=== PATIENT | male | born 1995 | race Caucasian/White ===

== ENCOUNTER 2019-11-04 00:58 | Inpatient (IN) | payer SELFPAY ==
[2019-11-04] VITALS (41 sets, daily range): BP systolic 72–146; BP diastolic 44–98; PULSE 64–107; RESP 7–97; TEMP 36.6–37.2; O2SAT 15–100; BMI 22.1
--- NOTE | ~2019-11-04 | CT_ITS ---
EXAMINATION: CT brain wo con DATE: 11/04/2019 06:02 INDICATION: Syncope TECHNIQUE: Computed tomography (CT) of the head was performed without intravenous contrast. The mA wa s adjusted according to patient size. Iterative reconstruction technique was employed. Exam dose: 60 5.33 mGy-cm total exam DLP. COMPARISON: 09/04/2019 CT brain FINDINGS: No intracranial mass lesion or hemorrhage or cerebrovascular accident. No midline shift or mass effect. Normal ventricular size. Normal oneill-white matter differentiation. No subdural or epidur al hematoma. No fracture or bone destruction of the cranial vault. Included paranasal sinuses and mastoid air cells are unremarkable. IMPRESSION: No significant abnormality Reviewed, dictated and finalized at [facility]. Reviewed, dictated and finalized at [facility]. OR SCRIPT EDITOR IMPRESSION: No significant abnormality
--- NOTE | ~2019-11-04 | CT_ITS ---
EXAMINATION: CTA chest PE abdomen pel DATE: 11/04/2019 02:25 INDICATION: Syncope. Hypotension. Chest pain. Abdominal pain, vomiting. Shaking. TECHNIQUE: Computed tomography angiography (CTA) of the chest was performed with 100 mL Omnipaque-350 intravenous contrast timed to evaluate the pulmonary arteries. Coronal maximum intensity projection 3D-reconstructions were created by the technologist. Automated exposure control and iterative reconst ruction technique were employed. Exam dose: 736.43 mGy-cm total exam DLP. COMPARISON: 04/26/2015 CT abdomen pelvis 09/04/2019 right RIBS with one view chest FINDINGS: There is diagnostic contrast enhancement of the pulmonary arteries and no evidence of pulmo nary embolism. No thoracic aortic aneurysm or dissection. Normal size and homogeneous attenuation of the thyroid gland. Normal heart size. No pericardial or pleural effusion. The lungs are clear. Included thoracic skeletal structures are unremarkable. The liver, gallbladder, bile ducts, spleen, pancreas, pancreatic duct, and adrenal glands and kidneys appear normal. Normal caliber of the abdominal aorta. No intraperitoneal or retroperitoneal or pelvi c mass lesion or adenopathy or ascites. Normal appendix. There is a moderately prominent amount of fecal material within the colon. No bowel obstruction or intraperitoneal free air. The urinary bladder is unremarkable. Minimal prostate gland calcification. There is a benign appearing lucency of the third lumbar vertebral body posteriorly on the left, measu ring approximately 9 x 14 mm, with sclerotic margin. The included abdominal and pelvic skeletal struc tures are otherwise unremarkable. IMPRESSION: No evidence of pulmonary embolism No other significant abnormality of the chest or abdomen Reviewed, dictated and finalized at [facility]. Reviewed, dictated and finalized at location [facility]. O ENGINEER
--- NOTE | 2019-11-04 01:15 | ECG_ITS ---
Measurements Intervals [place] Rate: 97 P: 82 [place]: 131 QRS: 66 QRSD: 105 T: 63 QT: 359 QTc: 457 Interpretive Statements SINUS RHYTHM POSSIBLE LEFT ATRIAL ENLARGEMENT INCOMPLETE RIGHT BUNDLE BRANCH BLOCK NONSPECIFIC ST & T-WAVE ABNORMALITY- ANTEROLAT/INF LEADS BASELINE ARTIFACT- I, III, AVR, AVL, AVF, V4-V6 BORDERLINE ECG Electronically Signed On 11-04-2019 8:13:39 CREDIT RISK ANALYST by Dean Story D.O.
--- NOTE | 2019-11-04 01:32 | ED.SYNCOPE ---
HPI - Syncope General Chief Complaint: Syncope Stated Complaint: syncopal Time Seen by Provider: 11/04/19 01:32 Source: patient, RN notes reviewed and other (ex-) Mode of arrival: wheelchair Limitations: no limitations History of Present Illness HPI narrative: A 24 y/o male presents to the ED after having a possible syncopal event earlier in the night. Per ex- states that the pt called him and told her that he thought he was going to pass out and was afraid to drive. She reports that when she got there around 0030 that the pt was slumped over the steering wheel with the door open but was conscious, and that since she has been with the pt that he hasn't had any LOC. The pt states that he was walking out of work to his car when he became hot, sweaty, and nauseas. He reports that he was in his car when he called his ex and then blacked out. He notes that he is still hot, sweaty, and nauseas. He denies any CP, cough, SOB, vomiting, diarrhea, ABD pain, or JACINTO. MD complaint: loss of consciousness Onset (ago): minute(s) (less than an hour) Prodromal symptoms: diaphoresis, nausea/vomiting (no vomiting) and other (hot) Witnessed: No Context: other (leaving work) Injuries sustained associated with event: none Current symptoms: nausea and other (hot and sweaty) Related Data Allergies Allergy/AdvReac Type Severity Reaction Status Date / Time COCONUT Allergy Unknown Unknown Uncoded 11/04/19 01:15 Review of Systems Review of Systems: Narrative: CONSTITUTIONAL: Reports feeling hot and sweat. CARDIOVASCULAR: Denies chest pain. RESPIRATORY: Denies cough or dyspnea. GASTROINTESTINAL: Denies abdominal pain, vomiting, or diarrhea. Reports nausea. NEUROLOGIC: Denies headache. Reports LOC. All systems reviewed & are unremarkable except as noted in HPI and below PMFSH Past Medical History Medical History (Updated 11/04/19 @ 05:55 by Yohana Terry MD) Asthma Bronchitis Surgical History Surgical History (Updated 09/05/19 @ 00:25 by Breanna Cook PA-C) Hx of tonsillectomy Social History Social History (Updated 11/04/19 @ 03:30 by Eitan Murphy) Smoking status: Current every day smoker Tobacco type: cigarettes and e-cigarettes Gender identity (if verbalized by the patient): Male Exam Narrative: Exam Narrative: GENERAL: Unwell appearing, diaphoretic, awake HEAD: Normocephalic, atraumatic. EYES: PERRLA and EOMI. ENT: Nares clear, no rhinorrhea or epistaxis. Mucous membranes dry. NECK: Supple. CHEST: Clear to auscultation. No respiratory distress. HEART: Regula] rate and rhythm. No murmur heard. Normal peripheral pulses. ABDOMEN: Soft, mildly tender in periumbilical area, nonrigid, nondistended, normal active bowel sounds. EXTREMITIES: Normal range of motion. No edema. SKIN: Cool, pale, diaphoretic NEURO: No focal deficits. Alert and oriented x3 Course Course Emergency Course: Patient presented for evaluation of syncope. At the time of initial assessment, ABCs are intact and vital signs are stable. I was then called to the patient's bedside, as his blood pressure had dropped, he became bradycardic, and this was seemingly consistent with a nearly vasovagal syncope. Patient had no prodromal symptoms, stated that he suddenly began to feel nauseated and then he had a change in his vital signs. Patient did not lose consciousness in the ED, but nearly did lose consciousness. Patient's ex- reported that he did syncopized earlier, but did not have any seizure activity. Patient without tongue biting or urinary incontinence. No history of seizures. Patient denies any history of anxiety or depression, states he does not currently feel anxious. Obtained laboratory testing all which is unremarkable. Patient is not anemic, no leukocytosis. No lactic acidosis. No UTI. No severe electrolyte derangement, patient does have hypokalemia, but we will replete this orally. CT imaging shows no evidence of PE or intra-abdominal pathology. Lindsey
--- NOTE | 2019-11-04 01:37 | PC.NURSE ---
Patient's visitor comes to this nurse and states patient states he is not feeling good. This nurse and EDP goes into room and patient is pale and patient's BP has dropped. VORB IV fluids are started on patient.
--- NOTE | 2019-11-04 01:39 | ECG_ITS ---
Measurements Intervals [place] Rate: 76 P: 91 [place]: 138 QRS: 80 QRSD: 108 T: 50 QT: 384 QTc: 432 Interpretive Statements SINUS RHYTHM POSSIBLE LEFT ATRIAL ENLARGEMENT INCOMPLETE RIGHT BUNDLE BRANCH BLOCK BORDERLINE ST-T WAVE ABNORMALITY- ANT/INF LEADS BASELINE ARTIFACT- I, II, III, AVR, AVL, AVF, V3 BORDERLINE ECG Electronically Signed On 11-04-2019 8:14:26 VEGETABLE GROWER by Dean Story D.O.
[2019-11-04 01:41] LABS: Basophils Absolute Auto 0.1 K/mm3 (0.0-0.1); Basophils Percent Auto 0.6 % (0.2-1.2); Eosinophils Absolute Auto 0.1 K/mm3 (0-0.3); Eosinophils Percent Auto 0.7 % (0-4.4); Hematocrit 43.3 % (42.0-52.0); Immature Granulocyte Absolute 0.03 K/mm3 (0.00-0.031); Immature Granulocyte Percent A 0.3 % (0-0.5); Lymphocytes Absolute Auto 2.13 K/mm3 (0.9-3.2); Lymphocytes Percent Auto 24.3 % (18.3-44.2); Mean Corpuscular HGB Conc 34.6 g/dl (32-36); Mean Corpuscular Hemoglobin 34.5 pg (26-34); Mean Corpuscular Volume 99.5 fl (80-100); Mean Platelet Volume 9.6 fl (7.4-10.4); Monocytes Absolute Auto 0.6 K/mm3 (0.1-0.6); Monocytes Percent Auto 7.3 % (2.6-8.5); Neutrophils Absolute Auto 5.9 K/mm3 (1.3-6.7); Neutrophils Percent Auto 66.8 % (45.5-73.1); Platelet Count Result 228 k/mm3 (150-375); Red Blood Count 4.35 M/mm3 (4.6-6.20); Red Cell Distribution Width 10.4 % (11.5-14.5); White Blood Count 8.8 K/mm3 (4.5-10.0)
[2019-11-04] MEDS: SODIUM CHLORIDE 0.9% IV 2,000 ML 999 ML (01:47)
[2019-11-04 01:54] LABS: Blood Urea Nitrogen 9 mg/dL (9-20); Calcium 9.4 mg/dL (8.4-10.2); Carbon Dioxide 30 mmol/L (22-30); Chloride 96 mmol/L (98-107); Estimated CRCL calculation 109 ml/min; Estimated Glomerular Filt Rate > 60; Glucose 108 mg/dL (75-110); Sodium 141 mmol/L (137-145)
--- NOTE | 2019-11-04 02:08 | PC.NURSE ---
Patient taken to CT.
[2019-11-04 02:27] LABS: Alanine Aminotransferase 15 U/L (4-50); Albumin Level 4.9 g/dL (3.5-5.1); Alkaline Phosphatase 66 U/L (38-126); Aspartate Amino Transferase 20 U/L (17-59); Bilirubin,Total 2.3 mg/dL (0.2-1.3)
[2019-11-04] MEDS: ONDANSETRON INJ 4 MG/2 ML VIAL IV PUSH ×2 (02:27→09:16)
[2019-11-04 02:28] LABS: Lipase 69 U/L (23-300)
[2019-11-04 02:34] LABS: INR 1.1; Prothrombin Time 13.5 Seconds (11.1-14.7)
[2019-11-04 02:35] LABS: Partial Thromboplastin Time 25.1 SECONDS (22.3-36.8)
[2019-11-04 02:42] LABS: NT Pro B Type Natriuretic Pept 23 PG/ML (5-100); Troponin I < 0.012 ng/mL (0.000-0.034)
--- NOTE | 2019-11-04 04:45 | PC.NURSE ---
Patient calls this nurse into room, patient states I'm not feelling good. Patient hyperventilating and shaking. Patient instructed on slowing his breathing down and that I will inform the EDP.
--- NOTE | 2019-11-04 04:54 | PC.NURSE ---
EDP in room with patient.
[2019-11-04 04:56] LABS: Add Urine Microscopic? NO; Amphetamine Screen Urine Negative (Negative); Appearance Urine Clear (Clear); Barbiturate Screen Urine Negative (Negative); Benzodiazepines Screen Urine Negative (Negative); Bilirubin Urine Negative (Negative); Blood Urine Negative (Negative); Cannabinoid Screen Urine Negative (Negative); Cocaine Screen Urine Negative (Negative); Color Urine Straw (Yellow); Glucose Urine UA Negative (Negative); Ketones Urine Negative (Negative); Leukocyte Esterase Ur Negative LEU/UL (Negative); Methadone Screen Urine Negative (Negative); Nitrate Urine Negative (Negative); Opiate Screen Urine Negative (Negative); Phencyclidine Screen Urine Negative (Negative); Protein Urine Negative (Negative); Urobilinogen Urine Negative mg/dL (<2.0)
[2019-11-04 05:02] LABS: Specific Grav Ur 1.032 (1.001-1.035)
[2019-11-04] MEDS: POTASSIUM CHLORIDE 20 MEQ PACKET (FOR LIQUID) 40 MEQ PO (05:49)
[2019-11-04] MEDS: METOCLOPRAMIDE HCL INJ 10 MG/2 ML VIAL IV PUSH (05:49)
--- NOTE | 2019-11-04 05:59 | PC.NURSE ---
Patient vomited after drinking the PO liquid potassium. EDP informed. Patient taken to CT. EDP states she will order IV potassium for patient. This nurse called QUINTIN Corrigan on [place] to inform her.
--- NOTE | 2019-11-04 06:15 | ADMGEN ---
This patient, Guanaco Ybarra, was admitted to [facility] Room 326-01. Patient/family oriented to hospital policies and general routines including ID bracelet, bed and alarms, visiting hours, pain management, procedures, bathroom and other care routines, personal items, smoking policy, room service/diet, and visiting hours. Valuables list has been completed. Information on how to activate the Rapid Response Team has been discussed. Patient/Family are encouraged to report perceived risks to care and to ask questions if they do not understand what they are told or what they should do.
[2019-11-04] MEDS: SODIUM CHLORIDE 0.9% IV 1,000 ML 125 ML IV CONT (06:48)
--- NOTE | 2019-11-04 07:29 | PC.NURSE ---
Notified the enrollment services vice president that Dr. Pitt wants the 3hr troponin drawn now and we will cancel the 1111 troponin order.
--- NOTE | 2019-11-04 07:36 | ECG_ITS ---
Measurements Intervals [place] Rate: 81 P: 77 [place]: 135 QRS: 69 QRSD: 105 T: 65 QT: 350 QTc: 408 Interpretive Statements SINUS RHYTHM POSSIBLE LEFT ATRIAL ENLARGEMENT INCOMPLETE RIGHT BUNDLE BRANCH BLOCK BORDERLINE ST-T WAVE ABNORMALITY- DIFFUSE LEADS BORDERLINE ECG Electronically Signed On 11-04-2019 8:16:39 CNC APPLICATIONS ENGINEER by Dean Story D.O.
[2019-11-04 08:40] LABS: Troponin I < 0.012 ng/mL (0.000-0.034)
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
[2019-11-04 13:28] LABS: Blood Urea Nitrogen 6 mg/dL (9-20); Calcium 8.9 mg/dL (8.4-10.2); Carbon Dioxide 30 mmol/L (22-30); Chloride 100 mmol/L (98-107); Estimated CRCL calculation 121 ml/min; Estimated Glomerular Filt Rate > 60; Glucose 91 mg/dL (75-110); Magnesium 1.9 mg/dL (1.6-2.3); Sodium 142 mmol/L (137-145)
[2019-11-05 09:15] LABS: Glucose Point of Care 96 (65-105)
== END 2019-11-04 13:55 | disposition home or self-care (01) | DRG 204 ==
LOC: ANHED 01:58 → ANH3MEDSUR 05:26
PROVIDERS: Admitting Provider Family Medicine; Emergency Provider Emergency Medicine; Visit Provider Internal Medicine
DX: I95.1 Orthostatic hypotension (principal); E87.6 Hypokalemia; F41.0 Panic disorder [episodic paroxysmal anxiety]; J45.909 Unspecified asthma, uncomplicated; F17.210 Nicotine dependence, cigarettes, uncomplicated; F17.290 Nicotine dependence, other tobacco product, uncomplicated; R51 Headache; T39.8X5A Adverse effect of other nonopioid analgesics and antipyretics, not elsewhere classified, initial encounter
CPT/HCPCS: 36415; 70450; 71275; 74177; 80048; 80053; 80307; 81003; 82948; 83690; 83735; 83880; 84443; 84484; 85025; 85610; 85730; 87804; 93005; 96361; 96374; 96375; 99285; A9270; J2405; J2765; J3480; J7030; Q9967